=== PATIENT | male | born 1960 | race Caucasian/White ===

== ENCOUNTER 2018-10-16 08:40 | Inpatient (IN) | payer OTHER ==
--- NOTE | 2018-10-16 09:48 | HP ---
CIWA Score Nausea/Vomitin Muscle Tremors: 2 Anxiety: 2 Agitation: 2 Paroxysmal Sweats: 1-Minimal Palms Moist Orientation: 0-Oriented Tacttile Disturbances: 1-Very Mild Itch/Numbness Auditory Disturbances: 0-None Visual Disturbances: 1-Very Mild Sensitivity - Admission Criteria OASAS Guidelines: Admission for Medically Managed Detox: Requires at least one of the followin. CIWA greater than 12 2. Seizures within the past 24 hours 3. Delirium tremens within the past 24 hours 4. Hallucinations within the past 24 hours 5. Acute intervention needed for co occurring medical disorder 6. Acute intervention needed for co occurring psychiatric disorder 7. Severe withdrawal that cannot be handled at a lower level of care (continued vomiting, continued diarrhea, abnormal vital signs) requiring intravenous medication and/or fluids 8. Patient presents the following: CIWA greater than 12 Admission Criteria Met: Admission criteria met Admission ROS S - [facility] Chief Complaint: i need help to stop drinking alcohol Allergies/Adverse Reactions: Allergies Allergy/AdvReac Type Severity Reaction Status Date / Time No Known Allergies Allergy Verified 10/16/18 10:48 History of Present Illness: this 58 years old male with alcohol dependence,seeking detox,withdrawal symptom , seen in [place] last night, syncope alcohol related multiple admissions in detox,last detox 2017 history of hypertension and type 2 dm,no medication weight loss history of surgery of right knee in 2007 no significant period of sobriety Exam Limitations: No Limitations - Ebola screening Have you traveled outside of the country in the last 21 days: No Have you had contact with anyone from an Ebola affected area: No Do you have a fever: No - Review of Systems Constitutional: Loss of Appetite, Malaise, Night Sweats, Changes in sleep, Weakness, Unintentional Wgt. Loss EENT: reports: Nose Congestion Respiratory: reports: No Symptoms reported Cardiac: reports: Palpitations GI: reports: Poor Appetite, Indigestion, Abdominal cramping : reports: No Symptoms Reported Musculoskeletal: reports: Back Pain, Muscle Pain Integumentary: reports: Dryness Neuro: reports: Headache, Tremors Endocrine: reports: No Symptoms Reported Hematology: reports: No Symptoms Reported Psychiatric: reports: No Sypmtoms Reported, Judgement Intact, Mood/Affect Appropiate, Orientated x3 Patient History - Patient Medical History Hx Anemia: No Hx Asthma: No Hx Chronic Obstructive Pulmonary Disease (COPD): No Hx Cancer: No Hx Cardiac Disorders: No Hx Congestive Heart Failure: No Hx Hypertension: Yes (no med) Hx Hypercholesterolemia: No Hx Pacemaker: No HX Cerebrovascular Accident: No Hx Seizures: No Hx Dementia: No Hx Diabetes: Yes (no medication) Hx Gastrointestinal Disorders: No Hx Liver Disease: No Hx Genitourinary Disorders: No Hx Sexually Transmitted Disorders: No Hx Renal Disease (ESRD): No Hx Thyroid Disease: No Hx Human Immunodeficiency Virus (HIV): No (last 2017 negative) Hx Hepatitis C: No Hx Depression: No Hx Suicide Attempt: No Hx Bipolar Disorder: No Hx Schizophrenia: No - Patient Surgical History Past Surgical History: Yes - PPD History Previous Implant?: Yes Documented Results: Negative w/o proof Implanted On Prior [facility] Admission?: No PPD to be Administered?: Yes - Smoking Cessation Smoking history: Current every day smoker Have you smoked in the past 12 months: Yes Aproximately how many cigarettes per day: 5 Cigars Per Day: 0 Hx Chewing Tobacco Use: No Initiated information on smoking cessation: Yes 'Breaking Loose' booklet given: 10/16/18 - Substance & Tx. History Hx Alcohol Use: Yes Hx Substance Use: No Substance Use Type: Alcohol Hx Substance Use Treatment: Yes ([place] the city ) - Substances Abused Alcohol Route: Oral Frequency: Daily Amount used: 2pints of vodka/2 of 6 packs of 12 ozs of beer Age of first use: 10 Date of Last Use: 10/15/18 Family Disease History - Family Disease History Family History: Denies Family Disease History: Other: Mother (alcohol,) Admission Physical Exam BHS - Vital Signs Vital Signs: Vital Signs Temperature 97.1 F L 10/17/18 07:45 Pulse Rate 103 H 10/17/18 07:45 Respiratory Rate 10/17/18 07:45 Blood Pressure 122/72 10/17/18 07:45 O2 Sat by Pulse Oximetry (%) - Physical General Appearance: Yes: Moderate Distress, Tremorous, Irritable, Sweating, Anxious, Other (poor hygiene) HEENTM: Yes: Normal ENT Inspection, GAMALIEL, Pharynx Normal Respiratory: Yes: Lungs Clear, Normal Breath Sounds, No Respiratory Distress Neck: Yes: Within Normal Limits, Supple, Trachea in good position Breast: Yes: Within Normal Limits Cardiology: Yes: Tachycardia Abdominal: Yes: Within Normal Limits, Normal Bowel Sounds, Non Tender, Soft Genitourinary: Yes: Within Normal Limits Back: Yes: Muscle Spasm Musculoskeletal: Yes: Back pain, Muscle Pain Extremities: Yes: Tremors Neurological: Yes: design engineering technician II-XII NML intact, Fully Oriented, Alert, Motor Strength 5/5 Integumentary: Yes: Dry Lymphatic: Yes: Within Normal Limits - Diagnostic (1) Alcohol dependence with uncomplicated withdrawal Current Visit: Yes Status: Acute (2) Syncope Current Visit: Yes Status: Acute (3) Essential hypertension Current Visit: Yes Status: Acute (4) DM2 (diabetes mellitus, type 2) Current Visit: Yes Status: Acute (5) Poor hygiene Current Visit: Yes Status: Acute (6) Nicotine dependence Current Visit: Yes Status: Acute (7) Weight loss Current Visit: Yes Status: Acute (8) History of right knee surgery Current Visit: Yes Status: Acute (9) Frequent falls Current Visit: Yes Status: Acute (10) Use of cane as ambulatory aid Current Visit: Yes Status: Acute Cleared for Admission S - Detox or Rehab [facility] Level of Care: Medically Managed Detox Regimen/Protocol: Librium
[2018-10-16] MEDS ORDERED: ACETAMINOPHEN 325 MG TABLET (FP) PO PRN (09:59)
[2018-10-16] MEDS ORDERED: hydrOXYzine PAMOATE 25 MG CAPSULE (FP) PO PRN (09:59)
[2018-10-16] MEDS ORDERED: IBUPROFEN 400 MG TABLET (FP) PO PRN (09:59)
[2018-10-16] MEDS ORDERED: P-EPHED 60MG/TRIPROLIDI 2.5MG TABLET PO PRN (09:59)
[2018-10-16] MEDS ORDERED: MAG HYDROX/AL HYDROX/SIMETH 30 ML UNIT-DOSE CUP PO PRN (09:59)
[2018-10-16] MEDS ORDERED: MAGNESIUM HYDROX 2400MG/30ML ORAL SUSPENSION 30 ML CUP PO PRN (09:59)
[2018-10-16] MEDS ORDERED: guaiFENesin/D-METHORPHAN HB 10 ML UNIT-DOSE CUPS PO PRN (09:59)
[2018-10-16] MEDS ORDERED: MAGNESIUM CITRATE 300 ML BOTTLE PO PRN (09:59)
[2018-10-16] MEDS ORDERED: MENTHOL/PHENOL 1 EACH UD MM PRN (09:59)
[2018-10-16] MEDS ORDERED: chlordiazePOXIDE HCL 25 MG CAPSULE PO PRN (09:59)
[2018-10-16] MEDS ORDERED: LOPERAMIDE HCL 2 MG CAPSULE PO PRN (09:59)
[2018-10-16] MEDS: PRENATAL VITAMINS W/ FOLIC ACID TABLET (FP) PO SCH (11:40)
[2018-10-16] MEDS: metFORMIN HCL 500 MG TABLET (FP) PO SCH (17:11)
[2018-10-16] MEDS: chlordiazePOXIDE HCL 25 MG CAPSULE PO SCH ×2 (17:11→22:37)
[2018-10-16] MEDS: amLODIPine BESYLATE 5 MG TABLET (FP) PO SCH (20:36)
[2018-10-16] MEDS ORDERED: MELATONIN 5 MG TABLETS PO PRN (22:00)
[2018-10-16] MEDS: THIAMINE HCL 100 MG TABLET (FP) PO SCH (22:37)
[2018-10-17] MEDS: chlordiazePOXIDE HCL 25 MG CAPSULE PO SCH ×5 (06:16→22:52)
[2018-10-17] MEDS: metFORMIN HCL 500 MG TABLET (FP) PO SCH (06:16)
--- NOTE | 2018-10-17 10:07 | PN ---
S CIWA - CIWA Score Nausea/Vomitin-Mild Nausea/No Vomiting Muscle Tremors: 3 Anxiety: 3 Agitation: 3 Paroxysmal Sweats: 1-Minimal Palms Moist Orientation: 1-Uncertain about Date Tacttile Disturbances: 0-None Auditory Disturbances: 0-None Visual Disturbances: 0-None Headache: 1-Very Mild CIWA-Ar Total Score: 13 BHS Progress Note (SOAP) Subjective: tremor sweat anxiety trouble sleep throughout the night restlessness Objective: 10/17/18 10:08 Vital Signs Temperature 97.7 F 10/17/18 09:53 Pulse Rate 88 10/17/18 09:53 Respiratory Rate 18 10/17/18 09:53 Blood Pressure 153/75 10/17/18 09:53 O2 Sat by Pulse Oximetry (%) Laboratory Last Values POC Glucometer 349 UNITS (80-120) 10/17/18 06:14 lab noted Assessment: 10/17/18 10:12 alcohol withdrawal sx diabetes II hypertension Plan: continue alcohol detox discuss alcohol related diabetes and hypertension discuss benefits of medication adherence
[2018-10-17 10:41] LABS: HEMATOCRIT 36.4 % (35.4-49); HEMOGLOBIN 11.8 GM/dL (11.7-16.9); MCH 30.1 pg (25.7-33.7); MCHC 32.4 g/dl (32.0-35.9); MEAN CELL VOLUME 92.7 fl (80-96); MEAN PLT VOLUME 9.1 fl (7.5-11.1); PLATELET COUNT 219 K/MM3 (134-434); RBC 3.93 M/mm3 (4.00-5.60); RDW 14.6 % (11.9-15.9); WHITE BLOOD COUNT 7.4 K/mm3 (4.0-10.0)
[2018-10-17] MEDS: PRENATAL VITAMINS W/ FOLIC ACID TABLET (FP) PO SCH (10:56)
[2018-10-17] MEDS: amLODIPine BESYLATE 5 MG TABLET (FP) PO SCH (10:57)
[2018-10-17] MEDS ORDERED: amLODIPine BESYLATE 10 MG TABLET (FP) PO ONE (10:59)
[2018-10-17 12:00] LABS: ALK PHOS 148 U/L (45-117); ANION GAP 13 MMOL/L (8-16); BILIRUBIN,TOTAL 0.3 mg/dL (0.2-1); BLOOD UREA NITROGEN 10 mg/dL (7-18); CALCIUM 8.7 mg/dL (8.5-10.1); CHLORIDE 98 mmol/L (98-107); CO2 23 mmol/L (21-32); CREATININE 0.9 mg/dL (0.55-1.3); POTASSIUM 4.3 mmol/L (3.5-5.1); SGOT/AST 18 U/L (15-37); SGPT/ALT 14 U/L (13-61); SODIUM 134 mmol/L (136-145); TOT PROT 6.4 g/dl (6.4-8.2)
[2018-10-17 12:26] LABS: GLUCOSE,RANDOM 307 mg/dL (74-106)
[2018-10-17] MEDS ORDERED: LISINOPRIL 10 MG TABLET (FP) PO SCH (13:50)
[2018-10-17] MEDS: INSULIN SLIDING SCALE (NOVOLOG) 1 VIAL SQ SCH ×2 (17:54→22:47)
[2018-10-17] MEDS: LISINOPRIL 10 MG TABLET (FP) PO SCH (20:24)
[2018-10-17] MEDS: THIAMINE HCL 100 MG TABLET (FP) PO SCH ×2 (22:34→22:45)
[2018-10-18] MEDS: chlordiazePOXIDE HCL 25 MG CAPSULE PO SCH ×2 (06:04→11:03)
[2018-10-18] MEDS: INSULIN SLIDING SCALE (NOVOLOG) 1 VIAL SQ SCH ×4 (07:40→22:33)
[2018-10-18] MEDS: PRENATAL VITAMINS W/ FOLIC ACID TABLET (FP) PO SCH (10:57)
[2018-10-18] MEDS: LISINOPRIL 10 MG TABLET (FP) PO SCH (11:03)
[2018-10-18] MEDS: amLODIPine BESYLATE 10 MG TABLET (FP) PO SCH (11:03)
--- NOTE | 2018-10-18 15:24 | PN ---
[facility] CIWA - CIWA Score Nausea/Vomitin-No Nausea/No Vomiting Muscle Tremors: 2 Anxiety: 0-No Anxiety, at Ease Agitation: 0-Normal Activity Paroxysmal Sweats: 3 Orientation: 1-Uncertain about Date Tacttile Disturbances: 3-Moderate Itch/Numb/Burn Auditory Disturbances: 0-None Visual Disturbances: 0-None Headache: 0-None Present CIWA-Ar Total Score: 9 S Progress Note (SOAP) Subjective: PATIENT SLEEPY. C/O NUMBNESS/TINGLING/BURNIING TO FEET, SWEATING AND SHAKES. Objective: 10/18/18 15:28 Vital Signs Temperature 98.6 F 10/18/18 13:14 Pulse Rate 98 H 10/18/18 13:14 Respiratory Rate 16 10/18/18 13:14 Blood Pressure 111/64 10/18/18 13:14 O2 Sat by Pulse Oximetry (%) Laboratory Tests 10/16/18 10/16/18 10/17/18 10:14 16:19 06:00 WBC 7.4 RBC 3.93 L Hgb 11.8 Hct 36.4 MCV 92.7 MCH 30.1 MCHC 32.4 RDW 14.6 Plt Count 219 MPV 9.1 Sodium Potassium Chloride Carbon Dioxide Anion Gap BUN Creatinine Creat Clearance w eGFR POC Glucometer 316 272 Random Glucose Calcium Total Bilirubin AST ALT Alkaline Phosphatase Total Protein Albumin RPR Titer 10/17/18 10/17/18 10/17/18 06:00 06:00 06:14 WBC RBC Hgb Hct MCV MCH MCHC RDW Plt Count MPV Sodium 134 L Potassium 4.3 Chloride 98 Carbon Dioxide 23 Anion Gap 13 BUN 10 Creatinine 0.9 Creat Clearance w eGFR > 60 POC Glucometer 349 Random Glucose 307 H* Calcium 8.7 Total Bilirubin 0.3 AST 18 ALT 14 Alkaline Phosphatase 148 H Total Protein 6.4 Albumin 3.0 L RPR Titer Nonreactive 10/17/18 10/17/18 10/18/18 16:40 22:38 06:51 WBC RBC Hgb Hct MCV MCH MCHC RDW Plt Count MPV Sodium Potassium Chloride Carbon Dioxide Anion Gap BUN Creatinine Creat Clearance w eGFR POC Glucometer 323 293 276 Random Glucose Calcium Total Bilirubin AST ALT Alkaline Phosphatase Total Protein Albumin RPR Titer 10/18/18 11:01 WBC RBC Hgb Hct MCV MCH MCHC RDW Plt Count MPV Sodium Potassium Chloride Carbon Dioxide Anion Gap BUN Creatinine Creat Clearance w eGFR POC Glucometer 287 Random Glucose Calcium Total Bilirubin AST ALT Alkaline Phosphatase Total Protein Albumin RPR Titer PE: +BODY ODOR AND SLEEPY SKIN WARM AND MOIST EXT + TREMORS, FULL ROM IN NO ACUTE DISTRESS Assessment: 10/18/18 15:29 WITHDRAWAL SX Plan: CONTINUE DETOX ENCOURAGE FLUIDS ORALLY ASSISTED WITH MORNING CARE CONTINUE TO MONITOR CLINICALLY
[2018-10-18] MEDS: chlordiazePOXIDE 5 MG CAPSULE PO SCH ×2 (17:51→22:37)
[2018-10-18] MEDS: THIAMINE HCL 100 MG TABLET (FP) PO SCH (22:37)
[2018-10-19] MEDS: chlordiazePOXIDE 5 MG CAPSULE PO SCH ×2 (06:04→10:53)
[2018-10-19] MEDS: INSULIN SLIDING SCALE (NOVOLOG) 1 VIAL SQ SCH ×4 (08:03→22:36)
[2018-10-19] MEDS: PRENATAL VITAMINS W/ FOLIC ACID TABLET (FP) PO SCH (10:51)
[2018-10-19] MEDS: LISINOPRIL 10 MG TABLET (FP) PO SCH (10:53)
[2018-10-19] MEDS: amLODIPine BESYLATE 10 MG TABLET (FP) PO SCH (10:53)
--- NOTE | 2018-10-19 13:58 | PN ---
BHS Progress Note (SOAP) Subjective: Tremors, sweats, restlessness, irritability Objective: 10/19/18 13:57 Vital Signs Temperature 96.3 F L 10/19/18 10:47 Pulse Rate 116 H 10/19/18 10:47 Respiratory Rate 18 10/19/18 10:47 Blood Pressure 120/70 10/19/18 10:47 O2 Sat by Pulse Oximetry (%) Laboratory Last Values WBC 7.4 K/mm3 (4.0-10.0) 10/17/18 06:00 RBC 3.93 M/mm3 (4.00-5.60) L 10/17/18 06:00 Hgb 11.8 GM/dL (11.7-16.9) 10/17/18 06:00 Hct 36.4 % (35.4-49) 10/17/18 06:00 MCV 92.7 fl (80-96) 10/17/18 06:00 MCH 30.1 pg (25.7-33.7) 10/17/18 06:00 MCHC 32.4 g/dl (32.0-35.9) 10/17/18 06:00 RDW 14.6 % (11.9-15.9) 10/17/18 06:00 Plt Count 219 K/MM3 (134-434) 10/17/18 06:00 MPV 9.1 fl (7.5-11.1) 10/17/18 06:00 Sodium 134 mmol/L (136-145) L 10/17/18 06:00 Potassium 4.3 mmol/L (3.5-5.1) 10/17/18 06:00 Chloride 98 mmol/L (98-107) 10/17/18 06:00 Carbon Dioxide 23 mmol/L (21-32) 10/17/18 06:00 Anion Gap 13 MMOL/L (8-16) 10/17/18 06:00 BUN 10 mg/dL (7-18) 10/17/18 06:00 Creatinine 0.9 mg/dL (0.55-1.3) 10/17/18 06:00 Creat Clearance w eGFR > 60 (>60) 10/17/18 06:00 POC Glucometer 258 UNITS (80-120) 10/19/18 11:14 Random Glucose 307 mg/dL (74-106) H* 12/13/18 06:00 Calcium 8.7 mg/dL (8.5-10.1) 10/17/18 06:00 Total Bilirubin 0.3 mg/dL (0.2-1) 10/17/18 06:00 AST 18 U/L (15-37) 10/17/18 06:00 ALT 14 U/L (13-61) 10/17/18 06:00 Alkaline Phosphatase 148 U/L (45-117) H 10/17/18 06:00 Total Protein 6.4 g/dl (6.4-8.2) 10/17/18 06:00 Albumin 3.0 g/dl (3.4-5.0) L 10/17/18 06:00 RPR Titer Nonreactive (NONREACTIVE) 10/17/18 06:00 Labs noted Assessment: 10/19/18 13:58 Withdrawal sx Plan: Continue detox
[2018-10-19] MEDS: chlordiazePOXIDE HCL 10 MG CAPSULE PO SCH ×2 (17:38→22:36)
[2018-10-19] MEDS: THIAMINE HCL 100 MG TABLET (FP) PO SCH (22:36)
[2018-10-20] MEDS: chlordiazePOXIDE HCL 10 MG CAPSULE PO SCH ×2 (06:52→10:12)
[2018-10-20] MEDS: INSULIN SLIDING SCALE (NOVOLOG) 1 VIAL SQ SCH ×4 (08:10→23:32)
[2018-10-20] MEDS: amLODIPine BESYLATE 10 MG TABLET (FP) PO SCH (10:12)
[2018-10-20] MEDS: PRENATAL VITAMINS W/ FOLIC ACID TABLET (FP) PO SCH (10:13)
[2018-10-20] MEDS: LISINOPRIL 10 MG TABLET (FP) PO SCH (10:13)
[2018-10-20] MEDS ORDERED: INSULIN (NOVOLOG) ASPART 100 UNITS/ML 10ML VIAL ONE (11:40)
--- NOTE | 2018-10-20 18:07 | PN ---
BHS Progress Note (SOAP) Subjective: Feeling weak, unsteady gait, interrupted sleep. Objective: 10/20/18 18:05 Last Vital Signs Temp Pulse Resp BP Pulse Ox 96.6 F L 97 H 18 149/78 10/20/18 13:45 10/20/18 13:45 10/20/18 13:45 10/20/18 13:45 Laboratory Tests 10/16/18 10/16/18 10/17/18 10:14 16:19 06:00 WBC 7.4 RBC 3.93 L Hgb 11.8 Hct 36.4 MCV 92.7 MCH 30.1 MCHC 32.4 RDW 14.6 Plt Count 219 MPV 9.1 Sodium Potassium Chloride Carbon Dioxide Anion Gap BUN Creatinine Creat Clearance w eGFR POC Glucometer 316 272 Random Glucose Calcium Total Bilirubin AST ALT Alkaline Phosphatase Total Protein Albumin RPR Titer 10/17/18 10/17/18 10/17/18 06:00 06:00 06:14 WBC RBC Hgb Hct MCV MCH MCHC RDW Plt Count MPV Sodium 134 L Potassium 4.3 Chloride 98 Carbon Dioxide 23 Anion Gap 13 BUN 10 Creatinine 0.9 Creat Clearance w eGFR > 60 POC Glucometer 349 Random Glucose 307 H* Calcium 8.7 Total Bilirubin 0.3 AST 18 ALT 14 Alkaline Phosphatase 148 H Total Protein 6.4 Albumin 3.0 L RPR Titer Nonreactive 10/17/18 10/17/18 10/18/18 16:40 22:38 06:51 WBC RBC Hgb Hct MCV MCH MCHC RDW Plt Count MPV Sodium Potassium Chloride Carbon Dioxide Anion Gap BUN Creatinine Creat Clearance w eGFR POC Glucometer 323 293 276 Random Glucose Calcium Total Bilirubin AST ALT Alkaline Phosphatase Total Protein Albumin RPR Titer 10/18/18 10/18/18 10/18/18 11:01 16:18 20:59 WBC RBC Hgb Hct MCV MCH MCHC RDW Plt Count MPV Sodium Potassium Chloride Carbon Dioxide Anion Gap BUN Creatinine Creat Clearance w eGFR POC Glucometer 287 228 298 Random Glucose Calcium Total Bilirubin AST ALT Alkaline Phosphatase Total Protein Albumin RPR Titer 10/19/18 10/19/18 10/19/18 06:07 11:14 16:44 WBC RBC Hgb Hct MCV MCH MCHC RDW Plt Count MPV Sodium Potassium Chloride Carbon Dioxide Anion Gap BUN Creatinine Creat Clearance w eGFR POC Glucometer 166 258 356 Random Glucose Calcium Total Bilirubin AST ALT Alkaline Phosphatase Total Protein Albumin RPR Titer 10/19/18 10/20/18 10/20/18 21:57 07:02 11:33 WBC RBC Hgb Hct MCV MCH MCHC RDW Plt Count MPV Sodium Potassium Chloride Carbon Dioxide Anion Gap BUN Creatinine Creat Clearance w eGFR POC Glucometer 227 204 336 Random Glucose Calcium Total Bilirubin AST ALT Alkaline Phosphatase Total Protein Albumin RPR Titer Labs reviewed: elevated glucose due to DMT2 Assessment: 10/20/18 18:06 Withdrawal symptoms Plan: Continue detox Encouraged PO water intake Patient's discharged held due to worsening of withdrawal symptoms. Can keep patient until Sunday.
[2018-10-20] MEDS: THIAMINE HCL 100 MG TABLET (FP) PO SCH (23:32)
[2018-10-21] MEDS: INSULIN SLIDING SCALE (NOVOLOG) 1 VIAL SQ SCH ×2 (06:35→11:34)
[2018-10-21] MEDS ORDERED: INSULIN SLIDING SCALE (NOVOLOG) 1 VIAL SQ ONE (06:58)
[2018-10-21] MEDS: PRENATAL VITAMINS W/ FOLIC ACID TABLET (FP) PO SCH (11:22)
[2018-10-21] MEDS: amLODIPine BESYLATE 10 MG TABLET (FP) PO SCH ×2 (11:22→11:24)
[2018-10-21] MEDS: LISINOPRIL 10 MG TABLET (FP) PO SCH ×2 (11:23→11:25)
[2018-10-21 13:11] VITALS: BP 137/76; PULSE 97; TEMP 98.6
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
== END 2018-10-21 15:12 | disposition home or self-care (01) | DRG 775 ==
LOC: YASAS 08:40 → Y3N 10:15
PROC: HZ2ZZZZ Detoxification Services for Substance Abuse Treatment (ICD-10-PCS; principal; 2018-10-16)
DX: F10.230 Alcohol dependence with withdrawal, uncomplicated (principal); F17.213 Nicotine dependence, cigarettes, with withdrawal; E11.8 Type 2 diabetes mellitus with unspecified complications; I10 Essential (primary) hypertension; K46.0 Unspecified abdominal hernia with obstruction, without gangrene; R00.0 Tachycardia, unspecified; R29.6 Repeated falls; Z99.89 Dependence on other enabling machines and devices; Z79.84 Long term (current) use of oral hypoglycemic drugs
CPT/HCPCS: 36415; 80053; 82962; 85027; 86593

== ENCOUNTER 2018-11-27 17:22 | Inpatient (IN) | payer OTHER ==
[2018-11-27 18:19] VITALS: BMI 20.9
[2018-11-27] MEDS ORDERED: MELATONIN 5 MG TABLETS PO PRN (22:00)
[2018-11-27] MEDS ORDERED: chlordiazePOXIDE HCL 25 MG CAPSULE PO PRN (22:50)
[2018-11-27] MEDS ORDERED: P-EPHED 60MG/TRIPROLIDI 2.5MG TABLET PO PRN (22:52)
[2018-11-27] MEDS ORDERED: LOPERAMIDE HCL 2 MG CAPSULE PO PRN (22:52)
[2018-11-27] MEDS ORDERED: IBUPROFEN 400 MG TABLET (FP) PO PRN (22:52)
[2018-11-27] MEDS ORDERED: ACETAMINOPHEN 325 MG TABLET (FP) PO PRN (22:52)
[2018-11-27] MEDS ORDERED: MAGNESIUM HYDROX 2400MG/30ML ORAL SUSPENSION 30 ML CUP PO PRN (22:52)
[2018-11-27] MEDS ORDERED: guaiFENesin/D-METHORPHAN HB 10 ML UNIT-DOSE CUPS PO PRN (22:52)
[2018-11-27] MEDS ORDERED: MAG HYDROX/AL HYDROX/SIMETH 30 ML UNIT-DOSE CUP PO PRN (22:52)
[2018-11-27] MEDS ORDERED: MAGNESIUM CITRATE 300 ML BOTTLE PO PRN (22:52)
[2018-11-27] MEDS ORDERED: MENTHOL/PHENOL 1 EACH UD MM PRN (22:52)
[2018-11-27] MEDS ORDERED: NICOTINE POLACRILEX 2 MG GUM BC PRN (22:52)
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
[2018-11-27] MEDS ORDERED: COLLOIDAL OATMEAL 1 BAR EACH TP PRN (23:44)
[2018-11-27] MEDS: chlordiazePOXIDE HCL 25 MG CAPSULE PO SCH (23:59)
[2018-11-28] MEDS: metFORMIN HCL 500 MG TABLET (FP) PO SCH ×2 (06:19→16:59)
[2018-11-28] MEDS: chlordiazePOXIDE HCL 25 MG CAPSULE PO SCH ×4 (06:19→22:49)
--- NOTE | 2018-11-28 09:45 | PN ---
S CIWA - CIWA Score Nausea/Vomitin-Mild Nausea/No Vomiting Muscle Tremors: 3 Anxiety: 3 Agitation: 3 Paroxysmal Sweats: 1-Minimal Palms Moist Orientation: 0-Oriented Tacttile Disturbances: 0-None Auditory Disturbances: 1-Very Mild Visual Disturbances: 0-None Headache: 1-Very Mild CIWA-Ar Total Score: 13 BHS Progress Note (SOAP) Subjective: tremor sweating restlessness Objective: 11/28/18 09:45 Vital Signs Temperature 98.9 F 11/28/18 09:13 Pulse Rate 76 11/28/18 09:13 Respiratory Rate 17 11/28/18 09:13 Blood Pressure 116/77 11/28/18 09:13 O2 Sat by Pulse Oximetry (%) Laboratory Last Values POC Glucometer 255 UNITS (80-120) 11/28/18 05:57 lab pending Assessment: 11/28/18 09:45 withdrawal sx Plan: continue detox
[2018-11-28] MEDS ORDERED: TOLNAFTATE 1% CREAM 15 GM TUBE TP SCH (10:00)
[2018-11-28 10:11] LABS: HEMATOCRIT 31.8 % (35.4-49); HEMOGLOBIN 10.7 GM/dL (11.7-16.9); MCH 31.7 pg (25.7-33.7); MCHC 33.8 g/dl (32.0-35.9); MEAN CELL VOLUME 93.7 fl (80-96); PLATELET COUNT 201 K/MM3 (134-434); RBC 3.39 M/mm3 (4.00-5.60); WHITE BLOOD COUNT 4.8 K/mm3 (4.0-10.0)
[2018-11-28] MEDS: PRENATAL VITAMINS W/ FOLIC ACID TABLET (FP) PO SCH (10:34)
[2018-11-28] MEDS: TOLNAFTATE 1% CREAM 15 GM TUBE TP SCH ×2 (10:35→22:53)
[2018-11-28] MEDS: NICOTINE 14 MG/24 HOURS TOPICAL PATCH TD SCH (10:37)
[2018-11-28 10:38] LABS: ALBUMIN 2.2 g/dl (3.4-5.0); ALK PHOS 124 U/L (45-117); ANION GAP 8 MMOL/L (8-16); BILIRUBIN,TOTAL 0.2 mg/dL (0.2-1); BLOOD UREA NITROGEN 15 mg/dL (7-18); CALCIUM 7.8 mg/dL (8.5-10.1); CHLORIDE 104 mmol/L (98-107); CO2 28 mmol/L (21-32); CREATININE 1.1 mg/dL (0.55-1.3); GLUCOSE,RANDOM 247 mg/dL (74-106); SGOT/AST 14 U/L (15-37); SGPT/ALT 15 U/L (13-61); SODIUM 141 mmol/L (136-145)
[2018-11-28] MEDS: SELENIUM SULFIDE 2.25% 180 ML SHAMPOO TP SCH (11:22)
[2018-11-28] MEDS: THIAMINE HCL 100 MG TABLET (FP) PO SCH (22:53)
[2018-11-29] MEDS: chlordiazePOXIDE HCL 25 MG CAPSULE PO SCH (06:33)
[2018-11-29] MEDS: metFORMIN HCL 500 MG TABLET (FP) PO SCH ×2 (06:33→17:59)
[2018-11-29] MEDS: PRENATAL VITAMINS W/ FOLIC ACID TABLET (FP) PO SCH (10:42)
[2018-11-29] MEDS: NICOTINE 14 MG/24 HOURS TOPICAL PATCH TD SCH (10:43)
[2018-11-29] MEDS: chlordiazePOXIDE 5 MG CAPSULE PO SCH ×3 (10:44→22:57)
[2018-11-29] MEDS: SELENIUM SULFIDE 2.25% 180 ML SHAMPOO TP SCH (10:44)
[2018-11-29] MEDS: TOLNAFTATE 1% CREAM 15 GM TUBE TP SCH ×2 (10:44→22:57)
--- NOTE | 2018-11-29 15:20 | PN ---
S CIWA - CIWA Score Nausea/Vomitin-No Nausea/No Vomiting Muscle Tremors: 2 Anxiety: 3 Agitation: 1-Slight > Activity Paroxysmal Sweats: 2 Orientation: 0-Oriented Tacttile Disturbances: 0-None Auditory Disturbances: 0-None Visual Disturbances: 3-Moderate Sensitivity Headache: 0-None Present CIWA-Ar Total Score: 11 BHS Progress Note (SOAP) Subjective: Tremors, Sweating, Anxious. Objective: PATIENT A & O X 3, OBSERVED MOVING ABOUT UNIT IN A WHEELCHAIR. IN NO ACUTE DISTRESS. 11/29/18 15:20 Vital Signs Temperature 98.3 F 11/29/18 13:45 Pulse Rate 91 H 11/29/18 13:45 Respiratory Rate 18 11/29/18 13:45 Blood Pressure 157/82 11/29/18 13:45 O2 Sat by Pulse Oximetry (%) Laboratory Tests 11/27/18 11/28/18 11/28/18 21:49 05:57 07:00 WBC 4.8 RBC 3.39 L Hgb 10.7 L Hct 31.8 L MCV 93.7 MCH 31.7 MCHC 33.8 RDW 14.0 Plt Count 201 MPV 9.0 Sodium Potassium Chloride Carbon Dioxide Anion Gap BUN Creatinine Creat Clearance w eGFR POC Glucometer 270 255 Random Glucose Calcium Total Bilirubin AST ALT Alkaline Phosphatase Total Protein Albumin RPR Titer 11/28/18 11/28/18 11/28/18 07:00 07:00 16:14 WBC RBC Hgb Hct MCV MCH MCHC RDW Plt Count MPV Sodium 141 Potassium 4.0 Chloride 104 Carbon Dioxide 28 Anion Gap 8 BUN 15 Creatinine 1.1 Creat Clearance w eGFR > 60 POC Glucometer 264 Random Glucose 247 H Calcium 7.8 L Total Bilirubin 0.2 AST 14 L ALT 15 Alkaline Phosphatase 124 H Total Protein 5.0 L Albumin 2.2 L RPR Titer Nonreactive 11/29/18 06:22 WBC RBC Hgb Hct MCV MCH MCHC RDW Plt Count MPV Sodium Potassium Chloride Carbon Dioxide Anion Gap BUN Creatinine Creat Clearance w eGFR POC Glucometer 188 Random Glucose Calcium Total Bilirubin AST ALT Alkaline Phosphatase Total Protein Albumin RPR Titer LABS NOTED. Assessment: 11/29/18 15:23 WITHDRAWAL SYMPTOMS. ANEMIA. Plan: CONTINUE DETOX. PATIENT CURRENTLY RECEIVING DAILY MVI CONTAINING B VITAMINS AND IRON WHILE ADMITTED FOR DETOX.
[2018-11-29] MEDS: THIAMINE HCL 100 MG TABLET (FP) PO SCH (22:57)
[2018-11-30] MEDS: chlordiazePOXIDE 5 MG CAPSULE PO SCH ×4 (05:00→23:02)
[2018-11-30] MEDS: metFORMIN HCL 500 MG TABLET (FP) PO SCH ×2 (08:01→17:30)
[2018-11-30] MEDS: SELENIUM SULFIDE 2.25% 180 ML SHAMPOO TP SCH (11:11)
[2018-11-30] MEDS: NICOTINE 14 MG/24 HOURS TOPICAL PATCH TD SCH (11:11)
[2018-11-30] MEDS: PRENATAL VITAMINS W/ FOLIC ACID TABLET (FP) PO SCH (11:11)
[2018-11-30] MEDS: TOLNAFTATE 1% CREAM 15 GM TUBE TP SCH ×2 (11:12→23:02)
--- NOTE | 2018-11-30 14:42 | PN ---
[facility] Progress Note (SOAP) Subjective: Sweating, Anxious. Objective: PATIENT A & O X 3. IN NO ACUTE DISTRESS. 11/30/18 14:42 Vital Signs Temperature 98.8 F 11/30/18 13:17 Pulse Rate 93 H 11/30/18 13:17 Respiratory Rate 18 11/30/18 13:17 Blood Pressure 126/96 11/30/18 13:17 O2 Sat by Pulse Oximetry (%) Laboratory Tests 11/27/18 11/28/18 11/28/18 21:49 05:57 07:00 WBC 4.8 RBC 3.39 L Hgb 10.7 L Hct 31.8 L MCV 93.7 MCH 31.7 MCHC 33.8 RDW 14.0 Plt Count 201 MPV 9.0 Sodium Potassium Chloride Carbon Dioxide Anion Gap BUN Creatinine Creat Clearance w eGFR POC Glucometer 270 255 Random Glucose Calcium Total Bilirubin AST ALT Alkaline Phosphatase Total Protein Albumin RPR Titer 11/28/18 11/28/18 11/28/18 07:00 07:00 16:14 WBC RBC Hgb Hct MCV MCH MCHC RDW Plt Count MPV Sodium 141 Potassium 4.0 Chloride 104 Carbon Dioxide 28 Anion Gap 8 BUN 15 Creatinine 1.1 Creat Clearance w eGFR > 60 POC Glucometer 264 Random Glucose 247 H Calcium 7.8 L Total Bilirubin 0.2 AST 14 L ALT 15 Alkaline Phosphatase 124 H Total Protein 5.0 L Albumin 2.2 L RPR Titer Nonreactive 11/29/18 11/30/18 06:22 06:56 WBC RBC Hgb Hct MCV MCH MCHC RDW Plt Count MPV Sodium Potassium Chloride Carbon Dioxide Anion Gap BUN Creatinine Creat Clearance w eGFR POC Glucometer 188 187 Random Glucose Calcium Total Bilirubin AST ALT Alkaline Phosphatase Total Protein Albumin RPR Titer LABS NOTED. Assessment: WITHDRAWAL SYMPTOMS. 11/30/18 14:43 Vital Signs Temperature 98.8 F 11/30/18 13:17 Pulse Rate 93 H 11/30/18 13:17 Respiratory Rate 18 11/30/18 13:17 Blood Pressure 126/96 11/30/18 13:17 O2 Sat by Pulse Oximetry (%) Laboratory Tests 11/27/18 11/28/18 11/28/18 21:49 05:57 07:00 WBC 4.8 RBC 3.39 L Hgb 10.7 L Hct 31.8 L MCV 93.7 MCH 31.7 MCHC 33.8 RDW 14.0 Plt Count 201 MPV 9.0 Sodium Potassium Chloride Carbon Dioxide Anion Gap BUN Creatinine Creat Clearance w eGFR POC Glucometer 270 255 Random Glucose Calcium Total Bilirubin AST ALT Alkaline Phosphatase Total Protein Albumin RPR Titer 11/28/18 11/28/18 11/28/18 07:00 07:00 16:14 WBC RBC Hgb Hct MCV MCH MCHC RDW Plt Count MPV Sodium 141 Potassium 4.0 Chloride 104 Carbon Dioxide 28 Anion Gap 8 BUN 15 Creatinine 1.1 Creat Clearance w eGFR > 60 POC Glucometer 264 Random Glucose 247 H Calcium 7.8 L Total Bilirubin 0.2 AST 14 L ALT 15 Alkaline Phosphatase 124 H Total Protein 5.0 L Albumin 2.2 L RPR Titer Nonreactive 11/29/18 11/30/18 06:22 06:56 WBC RBC Hgb Hct MCV MCH MCHC RDW Plt Count MPV Sodium Potassium Chloride Carbon Dioxide Anion Gap BUN Creatinine Creat Clearance w eGFR POC Glucometer 188 187 Random Glucose Calcium Total Bilirubin AST ALT Alkaline Phosphatase Total Protein Albumin RPR Titer LABS NOTED. Plan: CONTINUE DETOX.
[2018-11-30] MEDS ORDERED: INSULIN (NOVOLOG) ASPART 100 UNITS/ML 10ML VIAL SQ ONE (17:41)
--- NOTE | 2018-11-30 17:46 | PN ---
KAREN Progress Note Note: Patient's blood sugar now is B/P 341mg/dl. Patient is asymptomatic Vital Signs Temperature 98 F 11/30/18 17:23 Pulse Rate 90 11/30/18 17:23 Respiratory Rate 18 11/30/18 17:23 Blood Pressure 156/94 11/30/18 17:23 O2 Sat by Pulse Oximetry (%) Action: Novolog insulin 6 unit subcutaneous route ordered
[2018-11-30] MEDS ORDERED: INSULIN SLIDING SCALE (NOVOLOG) 1 VIAL SQ ONE (17:56)
[2018-11-30] MEDS: THIAMINE HCL 100 MG TABLET (FP) PO SCH (23:02)
[2018-12-01] MEDS: metFORMIN HCL 500 MG TABLET (FP) PO SCH (07:11)
[2018-12-01] MEDS: chlordiazePOXIDE 5 MG CAPSULE PO SCH ×2 (07:11→10:34)
[2018-12-01 09:18] VITALS: BP 117/60; PULSE 84; TEMP 98
[2018-12-01] MEDS: NICOTINE 14 MG/24 HOURS TOPICAL PATCH TD SCH (10:33)
[2018-12-01] MEDS: TOLNAFTATE 1% CREAM 15 GM TUBE TP SCH (10:34)
[2018-12-01] MEDS: SELENIUM SULFIDE 2.25% 180 ML SHAMPOO TP SCH (10:34)
[2018-12-01] MEDS: PRENATAL VITAMINS W/ FOLIC ACID TABLET (FP) PO SCH (10:35)
[2018-12-01] MEDS ORDERED: TAMSULOSIN HCL 0.4 MG CAP PO SCH (10:59)
--- NOTE | 2018-12-01 11:04 | PN ---
[facility] Progress Note (SOAP) Subjective: feeling better less tremor mild sweating patient agrees to go to his primary care provider for urology referral Objective: 12/01/18 11:03 Vital Signs Temperature 98.0 F 12/01/18 09:17 Pulse Rate 84 12/01/18 09:17 Respiratory Rate 18 12/01/18 09:17 Blood Pressure 117/60 12/01/18 09:17 O2 Sat by Pulse Oximetry (%) Laboratory Last Values WBC 4.8 K/mm3 (4.0-10.0) 11/28/18 07:00 RBC 3.39 M/mm3 (4.00-5.60) L 11/28/18 07:00 Hgb 10.7 GM/dL (11.7-16.9) L 11/28/18 07:00 Hct 31.8 % (35.4-49) L 11/28/18 07:00 MCV 93.7 fl (80-96) 11/28/18 07:00 MCH 31.7 pg (25.7-33.7) 11/28/18 07:00 MCHC 33.8 g/dl (32.0-35.9) 11/28/18 07:00 RDW 14.0 % (11.9-15.9) 11/28/18 07:00 Plt Count 201 K/MM3 (134-434) 11/28/18 07:00 MPV 9.0 fl (7.5-11.1) 11/28/18 07:00 Sodium 141 mmol/L (136-145) 11/28/18 07:00 Potassium 4.0 mmol/L (3.5-5.1) 11/28/18 07:00 Chloride 104 mmol/L (98-107) 11/28/18 07:00 Carbon Dioxide 28 mmol/L (21-32) 11/28/18 07:00 Anion Gap 8 MMOL/L (8-16) 11/28/18 07:00 BUN 15 mg/dL (7-18) 11/28/18 07:00 Creatinine 1.1 mg/dL (0.55-1.3) 11/28/18 07:00 Creat Clearance w eGFR > 60 (>60) 11/28/18 07:00 POC Glucometer 146 UNITS (80-120) 12/01/18 07:08 Random Glucose 247 mg/dL (74-106) H 11/28/18 07:00 Calcium 7.8 mg/dL (8.5-10.1) L 11/28/18 07:00 Total Bilirubin 0.2 mg/dL (0.2-1) 11/28/18 07:00 AST 14 U/L (15-37) L 11/28/18 07:00 ALT 15 U/L (13-61) 11/28/18 07:00 Alkaline Phosphatase 124 U/L (45-117) H 11/28/18 07:00 Total Protein 5.0 g/dl (6.4-8.2) L 11/28/18 07:00 Albumin 2.2 g/dl (3.4-5.0) L 11/28/18 07:00 RPR Titer Nonreactive (NONREACTIVE) 11/28/18 07:00 lab noted low calcium Assessment: 12/01/18 11:06 withdrawal sx hypocalcemia urine incontinent Plan: continue detox oscal adult diaper
[2018-12-01] MEDS ORDERED: CALCIUM 250MG/VIT-D 125 UNITS 1 COMBO TABLET PO SCH (11:15)
--- NOTE | 2018-12-01 11:16 | DS ---
[facility] Detox Discharge Summary Admission Date: 11/27/18 Discharge Date: 12/01/18 - History Present History: Alcohol Dependence - Physical Exam Results Vital Signs: Vital Signs Temperature 98.0 F 12/01/18 09:17 Pulse Rate 84 12/01/18 09:17 Respiratory Rate 18 12/01/18 09:17 Blood Pressure 117/60 12/01/18 09:17 O2 Sat by Pulse Oximetry (%) Pertinent Admission Physical Exam Findings: alcohol withdrawal sx Laboratory Last Values WBC 4.8 K/mm3 (4.0-10.0) 11/28/18 07:00 RBC 3.39 M/mm3 (4.00-5.60) L 11/28/18 07:00 Hgb 10.7 GM/dL (11.7-16.9) L 11/28/18 07:00 Hct 31.8 % (35.4-49) L 11/28/18 07:00 MCV 93.7 fl (80-96) 11/28/18 07:00 MCH 31.7 pg (25.7-33.7) 11/28/18 07:00 MCHC 33.8 g/dl (32.0-35.9) 11/28/18 07:00 RDW 14.0 % (11.9-15.9) 11/28/18 07:00 Plt Count 201 K/MM3 (134-434) 11/28/18 07:00 MPV 9.0 fl (7.5-11.1) 11/28/18 07:00 Sodium 141 mmol/L (136-145) 11/28/18 07:00 Potassium 4.0 mmol/L (3.5-5.1) 11/28/18 07:00 Chloride 104 mmol/L (98-107) 11/28/18 07:00 Carbon Dioxide 28 mmol/L (21-32) 11/28/18 07:00 Anion Gap 8 MMOL/L (8-16) 11/28/18 07:00 BUN 15 mg/dL (7-18) 11/28/18 07:00 Creatinine 1.1 mg/dL (0.55-1.3) 11/28/18 07:00 Creat Clearance w eGFR > 60 (>60) 11/28/18 07:00 POC Glucometer 146 UNITS (80-120) 12/01/18 07:08 Random Glucose 247 mg/dL (74-106) H 11/28/18 07:00 Calcium 7.8 mg/dL (8.5-10.1) L 11/28/18 07:00 Total Bilirubin 0.2 mg/dL (0.2-1) 11/28/18 07:00 AST 14 U/L (15-37) L 11/28/18 07:00 ALT 15 U/L (13-61) 11/28/18 07:00 Alkaline Phosphatase 124 U/L (45-117) H 11/28/18 07:00 Total Protein 5.0 g/dl (6.4-8.2) L 11/28/18 07:00 Albumin 2.2 g/dl (3.4-5.0) L 11/28/18 07:00 RPR Titer Nonreactive (NONREACTIVE) 11/28/18 07:00 - Treatment Hospital Course: Detox Protocol Followed, Detoxed Safely, Responded well, Discharged Condition Good, Rehab Referral Accepted Patient has Accepted a Rehab Referral to: [facility] - Medication Discharge Medications: Ambulatory Orders Metformin HCl [Glucophage] 500 mg PO BIDAC 30 Days #60 tablet 11/30/18 - Diagnosis (1) Urine incontinence Current Visit: Yes Status: Chronic Qualifiers: Urinary Incontinence type: continuous leakage Qualified Code(s): N39.45 - Continuous leakage (2) Alcohol dependence with uncomplicated withdrawal Current Visit: Yes Status: Acute (3) DM2 (diabetes mellitus, type 2) Current Visit: Yes Status: Chronic Qualifiers: Diabetes mellitus detention insulin use: without detention use Diabetes mellitus complication status: with unspecified complications Qualified Code(s) : E11.8 - Type 2 diabetes mellitus with unspecified complications (4) Essential hypertension Current Visit: Yes Status: Chronic (5) Nicotine dependence Current Visit: Yes Status: Acute Qualifiers: Nicotine product type: cigarettes Substance use status: in withdrawal Qualified Code(s): F17.213 - Nicotine dependence, cigarettes, with withdrawal (6) Weight loss Current Visit: Yes Status: Acute - AMA Did Patient Leave Against Medical Advice: No
[2018-12-01] MEDS ORDERED: INSULIN SLIDING SCALE (NOVOLOG) 1 VIAL SQ SCH (16:30)
== END 2018-12-01 12:24 | disposition other institution (70) | DRG 775 ==
LOC: YASAS 17:22 → Y3N 23:43
PROVIDERS: ADMIT Neuromusculoskeletal Medicine & OMM; ATTEND Neuromusculoskeletal Medicine & OMM
PROC: HZ2ZZZZ Detoxification Services for Substance Abuse Treatment (ICD-10-PCS; principal; 2018-11-27)
DX: F10.230 Alcohol dependence with withdrawal, uncomplicated (principal); F17.210 Nicotine dependence, cigarettes, uncomplicated; N39.45 Continuous leakage; E11.8 Type 2 diabetes mellitus with unspecified complications; I10 Essential (primary) hypertension; E83.51 Hypocalcemia; D64.9 Anemia, unspecified; R00.0 Tachycardia, unspecified; R46.0 Very low level of personal hygiene; Z79.84 Long term (current) use of oral hypoglycemic drugs
CPT/HCPCS: 36415; 80053; 82962; 85027; 86593

== ENCOUNTER 2018-12-01 12:50 | Inpatient (IN) | payer OTHER ==
--- NOTE | 2018-12-01 11:17 | HP ---
KAREN BOATENG Rehab Assess/Revision - Admission History Admitted to Rehab from: [facility] Date of Admission to Rehab: 12/01/18 - Findings Detox History & Physical reviewed: Yes Concur with findings: Yes Comments/Additional Findings: transferred from detox to rehab admission as per protocol Inpatient Rehab Admission - Initial Determination Are CD services needed?: Yes Free of communicable disease: Yes Not in need of hospitalization: Yes - Rehab Admission Criteria Previous failed treatment: Yes Poor recovery environment: Yes Comorbidities: Yes Lacks judgement: No Patient is meeting Inpatient Rehab admission criteria:: Yes
[~2018-12-01 12:50] MED LIST: ACETAMINOPHEN 325 MG TABLET (FP) PO PRN; IBUPROFEN 400 MG TABLET (FP) PO PRN; LOPERAMIDE HCL 2 MG CAPSULE PO PRN; MAG HYDROX/AL HYDROX/SIMETH 30 ML UNIT-DOSE CUP PO PRN; MAGNESIUM CITRATE 300 ML BOTTLE PO PRN; MAGNESIUM HYDROX 2400MG/30ML ORAL SUSPENSION 30 ML CUP PO PRN; MENTHOL/PHENOL 1 EACH UD MM PRN; NICOTINE 14 MG/24 HOURS TOPICAL PATCH TD PRN; NICOTINE POLACRILEX 2 MG GUM BUC PRN; P-EPHED 60MG/TRIPROLIDI 2.5MG TABLET PO PRN; guaiFENesin/D-METHORPHAN HB 10 ML UNIT-DOSE CUPS PO PRN
[2018-12-01 14:00] VITALS: BMI 20.9
[2018-12-01] MEDS ORDERED: INSULIN (NOVOLOG) ASPART 100 UNITS/ML 10ML VIAL ONE ×2 (17:09→22:02)
[2018-12-01] MEDS: INSULIN SLIDING SCALE (NOVOLOG) 1 VIAL SQ SCH ×2 (17:12→21:56)
[2018-12-01] MEDS: metFORMIN HCL 500 MG TABLET (FP) PO SCH (17:12)
[2018-12-01] MEDS ORDERED: THIAMINE HCL 100 MG TABLET (FP) PO SCH (22:00)
[2018-12-01] MEDS ORDERED: MELATONIN 5 MG TABLETS PO PRN (22:00)
[2018-12-02 06:52] VITALS: BP 132/60; PULSE 72; TEMP 98.9
[2018-12-02] MEDS: metFORMIN HCL 500 MG TABLET (FP) PO SCH (07:33)
[2018-12-02] MEDS ORDERED: INSULIN (NOVOLOG) ASPART 100 UNITS/ML 10ML VIAL ONE ×2 (07:38→11:15)
[2018-12-02] MEDS: INSULIN SLIDING SCALE (NOVOLOG) 1 VIAL SQ SCH ×2 (07:40→11:17)
[2018-12-02] MEDS ORDERED: PRENATAL VITAMINS W/ FOLIC ACID TABLET (FP) PO SCH (10:00)
[2018-12-02] MEDS ORDERED: LISINOPRIL 10 MG TABLET (FP) PO SCH (14:15)
--- NOTE | 2018-12-02 14:30 | PN ---
[facility] Progress Note Note: MEDICAL DISCHARGE NOTES: PT WAS SEEN BY COUNSELOR TODAY TO ADDRESS PLAN OF CARE TO AN APPROPRIATE MEDICAL FACILITY THAT WILL MEET HIS TREATMENT NEEDS. PT REPORTS DIFFICULTY MOVING AROUND DUE TO PREVIOUS KNEE SURGERIES AND USES WHEELCHAIR AND CANE FOR AMBULATION. HX OF HTN AND DM, BLADDER/BOWEL INCONTINENCE, MULTIPLE KNEE SURGERIES, INABILITY TO PARTICIPATE IN TREATMENT GROUPS. PER COUNSELLING COMMERCIAL PEST CONTROL TECHNICIAN, MS JOSEPHINE DE LA ROSA PT HAS BEEN REFERRED TO [facility] FOR AFTERCARE TREATMENT/MEDICAL MANAGEMENT /PSYCH COMPONENT.PT WILL BE PICKED UP TODAY BY [facility]SP[facility] TO [facility] ON [address], [place] THEN TRANSITION TO [facility]. MS DE LA ROSA STATES SHE SPOKE TO THE CLINICAL DIRECTOR, MS HELEN FREIRE WHO AGREES THAT PT WILL BENEFIT FROM THIS TREATMENT DECISION. PT REPORTS HE HAS NO PMD AND GOES TO THE HOSPITAL EDs FOR HIS MEDICAL CARE. COURTESY RX FOR METFORMIN 500 MG PO BID#60 AND LISINOPRIL 10 MG PO DAILY #30 ELECTRONICALLY SENT TO [facility] FOR PATIENT TO PICKUP ON EXITING. Vital Signs - 24 hr 12/02/18 12/02/18 12/02/18 00:30 03:30 06:52 Temperature 98.9 F Pulse Rate 72 Respiratory 18 18 16 Rate Blood Pressure 132/60 Laboratory Tests 12/01/18 21:53 POC Glucometer 303 NAD PLAN: PER ABOVE
== END 2018-12-02 03:45 | disposition home or self-care (01) | DRG 772 ==
LOC: YASAS 12:50 → Y5N 12:51
PROVIDERS: ADMIT Psychiatry & Neurology Psychiatry; ATTEND Psychiatry & Neurology Psychiatry
PROC: HZ42ZZZ Group Counseling for Substance Abuse Treatment, Cognitive-Behavioral (ICD-10-PCS; principal; 2018-12-01)
DX: F10.20 Alcohol dependence, uncomplicated (principal); F17.210 Nicotine dependence, cigarettes, uncomplicated; F32.9 Major depressive disorder, single episode, unspecified; I10 Essential (primary) hypertension; E11.8 Type 2 diabetes mellitus with unspecified complications; R46.0 Very low level of personal hygiene; R00.0 Tachycardia, unspecified; Z79.84 Long term (current) use of oral hypoglycemic drugs; Z99.3 Dependence on wheelchair
CPT/HCPCS: 36415; 82962; 87389